=== PATIENT | male | born 1995 | race Caucasian/White ===

== ENCOUNTER 2016-03-04 15:07 | Emergency (ER) | payer MEDICAID ==
[2016-03-05] MEDS ORDERED: EPINEPHrine 1 MG/10 ML SYR IV ONE (03:49)
== END 2016-03-04 20:34 | disposition home or self-care (01) ==
LOC: ER 15:07
DX: R07.89 Other chest pain (principal); F17.210 Nicotine dependence, cigarettes, uncomplicated
CPT/HCPCS: 71010